=== PATIENT | male | born 1990 | race African-American/Black ===

== ENCOUNTER 2024-12-03 23:37 | Emergency (ER) | payer MEDICAID ==
[~2024-12-03] VITALS: Ht 175.3 cm; Wt 63.6 kg
[2024-12-03 23:58] VITALS: BP 117/80; PULSE 99; RESP 15; TEMP 98.6; O2SAT 98
[2024-12-04] MEDS: TraMADol HCL 50 MG TABLET PO ONE (00:30)
[2024-12-04] MEDS: LIDOCAINE 1% 10 ML VIAL SQ ONE (00:31)
[2024-12-04] MEDS: PERTUSS(ACELL),DIPH,TET/PF 0.5 ML SYRINGE [ADULT] IM. ONE (00:32)
[2024-12-04] MEDS ORDERED: CEPH-558 PO (01:37)
== END 2024-12-04 02:11 | disposition home or self-care (01) ==
LOC: EMS 23:39
DX: S61.215A Laceration without foreign body of left ring finger without damage to nail, initial encounter (principal); W26.0XXA Contact with knife, initial encounter; Y93.89 Activity, other specified; Y92.89 Other specified places as the place of occurrence of the external cause; Y99.8 Other external cause status
CPT/HCPCS: 99283; 12002; 90715; 90471; J3490